=== PATIENT | female | born 1985 | race Caucasian/White ===

== ENCOUNTER 2018-03-28 16:54 | Emergency (ER) | payer SELFPAY ==
--- NOTE | 2018-03-28 17:54 | EDPHY ---
H & P Time Seen by Provider: 03/28/18 17:53 HPI/ROS: Chief complaint. Nausea and vomiting and diarrhea HPI. 33-year-old female vomiting and diarrhea since 1:00 p.m. This afternoon. She works at [employer] and apparently there is norovirus in the facility. Otherwise no bad food or recent travel. Cramping in her abdomen. No blood in emesis or stool. No focal areas of tenderness of her abdomen. No chest discomfort, trouble breathing, fever ROS 10 systems were reviewed and negative with the exception of the elements mentioned in the history of present illness Past Medical/Surgical History: Depression and anxiety Social History: , nonsmoker, no alcohol Smoking Status: Never smoked Physical Exam: General Appearance: Alert well-developed female mild distress vital signs are stable Eyes: Pupils equal and round no pallor or injection. ENT, Mouth: Mucous membranes are moist. Respiratory: There are no retractions, lungs are clear to auscultation. Cardiovascular: Regular rate and rhythm. Gastrointestinal: Abdomen is soft mild diffuse tenderness. No masses. Normal bowel sounds Neurological: Awake and alert, sensory and motor exams grossly normal. Skin: Warm and dry, no rashes. Musculoskeletal: Neck is supple nontender. Extremities symmetrical, full range of motion. Psychiatric: Patient is oriented X 3, there is no agitation. Constitutional: Initial Vital Signs Temperature (C) 36.5 C 03/28/18 16:58 Heart Rate 84 03/28/18 16:58 Respiratory Rate 18 03/28/18 16:58 Blood Pressure 140/85 H 03/28/18 16:58 O2 Sat (%) 100 03/28/18 16:58 O2 Delivery Mode Room Air O2 (L/minute) 2 Allergies/Adverse Reactions: No Known Allergies Allergy (Unverified 03/28/18 16:57) Home Medications: Medication Instructions Recorded None 02/12/09 Citalopram 03/28/18 Promethazine HCl [Phenergan 25mg 25 mg PO Q4-6PRN PRN #10 tab 03/28/18 (*)] Medical Decision Making Procedures: IV normal saline. Zofran for nausea and vomiting. Fentanyl 50 mcg IV to help with diarrhea ED Course/Re-evaluation: Re-evaluation 7:15 p.m.. Patient feeling much better. She has had 1 L of fluid but no urge to urinate. She will be given a 2nd L of normal saline. She is taking sips of oral fluids without vomiting Re-evaluation again at 8:30 p.m. Patient feels much better. She feels well to go home. Patient and I discussed treatment plan including criteria for return and importance of follow-up and further evaluation. She expresses understanding and agreement Differential Diagnosis: Likely this is norovirus. I believe this is likely viral syndrome. I considered acute abdomen as well. - Data Points Laboratory Results: Laboratory Results 03/28/18 18:00 03/28/18 18:00 03/28/18 03/28/18 03/28/18 18:00 18:00 18:00 WBC 20.48 10^3/uL H 10^3/uL (3.80-9.50) RBC 5.44 10^6/uL H 10^6/uL (4.18-5.33) Hgb 16.7 g/dL H g/dL (12.6-16.3) Hct 48.7 % H % (38.0-47.0) MCV 89.5 fL fL (81.5-99.8) MCH 30.7 pg pg (27.9-34.1) MCHC 34.3 g/dL g/dL (32.4-36.7) RDW 12.1 % % (11.5-15.2) Plt Count 264 10^3/uL 10^3/uL (150-400) MPV 11.6 fL fL (8.7-11.7) Neut % (Auto) 90.3 % H % (39.3-74.2) Lymph % (Auto) 4.3 % L % (15.0-45.0) [place]undy % (Auto) 4.2 % L % (4.5-13.0) Eos % (Auto) 0.1 % L % (0.6-7.6) Baso % (Auto) 0.4 % % (0.3-1.7) Nucleat RBC Rel Count 0.0 % % (0.0-0.2) Absolute Neuts (auto) 18.47 10^3/uL H 10^3/uL (1.70-6.50) Absolute Lymphs (auto) 0.89 10^3/uL L 10^3/uL (1.00-3.00) Absolute Monos (auto) 0.87 10^3/uL H 10^3/uL (0.30-0.80) Absolute Eos (auto) 0.02 10^3/uL L 10^3/uL (0.03-0.40) Absolute Basos (auto) 0.08 10^3/uL 10^3/uL (0.02-0.10) Absolute Nucleated RBC 0.00 10^3/uL 10^3/uL (0-0.01) Immature Gran % 0.7 % % (0.0-1.1) Immature Gran # 0.15 10^3/uL H 10^3/uL (0.00-0.10) Sodium 138 mEq/L mEq/L (135-145) Potassium 4.0 mEq/L mEq/L (3.5-5.2) Chloride 102 mEq/L mEq/L (97-110) Carbon Dioxide 22 mEq/l mEq/l (22-31) Anion Gap 14 mEq/L mEq/L (6-14) BUN 21 mg/dL mg/dL (7-23) Creatinine 0.8 mg/dL mg/dL (0.6-1.0) Estimated GFR > 60 Glucose 186 mg/dL H mg/dL (70-100) Calcium 10.4 mg/dL mg/dL (8.5-10.4) Beta HCG, Qual NEGATIVE Medications Given: Discontinued Medications Fentanyl (Sublimaze) 50 mcg IVP EDNOW ONE Stop: 03/28/18 17:59 Last Admin: 03/28/18 18:12 Dose: 50 mcg Sodium Chloride (Ns) 1,000 mls @ 0 mls/hr IV EDNOW ONE; Wide Open PRN Reason: Protocol Stop: 03/28/18 17:59 Last Admin: 03/28/18 18:11 Dose: 1,000 mls Sodium Chloride (Ns) 1,000 mls @ 0 mls/hr IV ONCE ONE; Wide Open PRN Reason: Protocol Stop: 03/28/18 19:16 Last Admin: 03/28/18 19:29 Dose: 1,000 mls Ondansetron HCl (Zofran) 4 mg IVP EDNOW ONE Stop: 03/28/18 17:59 Last Admin: 03/28/18 18:11 Dose: 4 mg Departure - Departure Disposition: Home, Routine, Self-Care Clinical Impression: Acute gastroenteritis Condition: Good Instructions: Gastroenteritis (ED) Additional Instructions: Frequent, small sips fluids. Gradual diet advancement. Phenergan 1 pill every 4-6 hours as needed for nausea vomiting Return for worsening symptoms. Re-evaluation 1-2 days if not improving Referrals: VANESSA VERDUGO [Other] - As per Instructions Vanessa Jensne DO [Medical Doctor] - 2-3 days, if not improved Prescriptions: Promethazine HCl [Phenergan 25mg (*)] 25 mg PO Q4-6PRN PRN #10 tab PRN Reason: Nausea/Vomiting, Use 1st
[2018-03-28] MEDS ORDERED: NS 1,000 ML IV ONE ×2 (17:58→19:15)
[2018-03-28] MEDS ORDERED: ONDANSETRON 4 MG/2 ML VIAL IVP ONE (17:58)
[2018-03-28] MEDS ORDERED: fentaNYL 100 MCG/2 ML INJ IVP ONE (17:58)
[2018-03-28 18:10] LABS: PLATELET COUNT 264 10^3/uL (150-400)
[2018-03-28 20:34] VITALS: BP 100/59
[2018-03-28] MEDS ORDERED: PROMETHAZINE 25 MG PREPACK #4 BTL TAKEHOME ONE (21:01)
== END 2018-03-28 21:11 | disposition home or self-care (01) ==
DX: K52.9 Noninfective gastroenteritis and colitis, unspecified (principal); E86.9 Volume depletion, unspecified
CPT/HCPCS: 96374; J2405; J3010

== ENCOUNTER 2018-05-18 08:09 | Emergency (ER) | payer OTHER ==
--- NOTE | 2018-05-18 08:17 | EDPHY ---
H & P Time Seen by Provider: 05/18/18 08:13 HPI/ROS: CHIEF COMPLAINT: Fall, left ankle pain HISTORY OF PRESENT ILLNESS: Patient is a 33-year-old female presents emergency department via EMS after falling injuring her left ankle. The patient states she slipped. She felt sudden pain in her left ankle. She was unable to ambulate. She denies striking her head. She did not lose consciousness. No nausea vomiting. No neck or back pain. No chest pain shortness of breath. Patient denies any numbness or tingling. REVIEW OF SYSTEMS: Negative Past medical history: Depression Social history: Patient does not smoke Smoking Status: Never smoked Physical Exam: Vitals noted GENERAL: Well-appearing, in no acute distress, alert. HEAD: No evidence of trauma. EYES: PERRLA, EOMI, normal to inspection. ENT: Normal external examination. NECK: The trachea is midline. There is no crepitus. The C-spine is nontender. NEXUS criteria is negative (no midline tenderness, no distracting injury, no altered mental status, no recent alcohol use, no focal neurologic deficit). RESPIRATORY: [Clear to auscultation bilaterally, no rales, rhonchi or wheezing. CVS: Regular rate and rhythm, no rubs, murmurs, or gallops. ABDOMEN: Soft, nontender. Pelvis: Stable. No tenderness palpation. BACK: Normal to inspection, no spinal tenderness. SKIN: Normal color, warm, dry. No pallor or diaphoresis. EXTREMITIES: Right upper extremity: Atraumatic. No visible signs of trauma. No tenderness palpation. Neurovascular intact distally. Left upper extremity: Atraumatic. No visible signs of trauma. No tenderness palpation. Neurovascular intact distally. Right lower extremity: Atraumatic. No visible signs of trauma. No tenderness palpation. Neurovascular intact distally. Left lower extremity: Patient has a deformity at her left ankle. There is tenderness to palpation over both the medial and lateral malleolus. There is no laceration or open wound. Patient is neurovascular intact distally. NEURO/PSYCH: Alert and oriented x 3, GCS 15, normal mood and affect, normal motor sensory exam. Constitutional: Initial Vital Signs Temperature (C) 37.1 C 05/18/18 08:09 Heart Rate 68 05/18/18 08:09 Respiratory Rate 16 05/18/18 08:09 Blood Pressure 161/107 H 05/18/18 08:09 O2 Sat (%) 98 05/18/18 08:09 O2 Delivery Mode Nasal Cannula O2 (L/minute) 3 Allergies/Adverse Reactions: No Known Allergies Allergy (Unverified 05/18/18 08:16) Home Medications: Medication Instructions Recorded Citalopram 03/28/18 Hydrocodone/APAP 5/325 [Clint 1 - 2 tab PO Q4 #13 tab 05/18/18 5/325 (RX)] Ondansetron Odt [Zofran Odt 4 mg 4 mg PO Q4PRN PRN #7 tab 05/18/18 (*)] Medical Decision Making - Diagnostics Imaging Results: Imaging Impressions Ankle X-Ray 05/18/18 08:13 Impression: 1. Unstable fracture dislocation involving the distal fibula and posterior lip of the tibia. 2. Wide ankle mortise and probable disruption of the syndesmosis. Tibia/Fibula X-Ray 05/18/18 08:13 Impression: 1. Intact proximal shaft of tibia and fibula. 2. Ankle fracture dislocation. Procedures: Procedure: Procedural sedation. Indication: Ankle dislocation. A pre-sedation evaluation was completed on the patient just prior to the procedure. Patient is an appropriate candidate for procedural sedation with ASA class E. The risks of the sedation were discussed including but not limited to dysrhythmia, need for airway intervention or general anesthesia, disability, ; and verbal consent obtained. A timeout was observed and patient's identity confirmed. The patient was sedated with propofol. The patient was monitored with continuous pulse oximetry, capnography, and athletic monitor. There were no complications and no significant hypoxemia. I remained at the bedside for the sedation. The total time I spent in the procedural sedation was 15 min. Procedure: Ortho Glass splint placement Ortho Glass posterior and sugar-tong splint was placed by me. The patient tolerated the procedure well. Post splint placement patient was neurovascular intact distally. Procedure: Closed reduction of ankle dislocation Indication: Ankle dislocation The patient consented to the procedure. See above. Propofol was used. Using manual pressure the ankle was reduced. Fluoroscopic imaging revealed improved alignment. Patient was neurovascularly intact post reduction Procedure: Fluoroscopic imaging of ankle reduction During ankle reduction, fluoroscopic evaluation was used to show improved alignment. ED Course/Re-evaluation: In the emergency department I met EMS on arrival. I took report from the crutching contractor. Patient was given fentanyl EN route. X-rays of her right ankle and right tib-fib were ordered. Ankle/tib-fib x-ray: Please refer the dictated report. Patient has fracture dislocation of the distal ankle I discussed the finding with the patient. I answered all her questions. She last ate last evening. I paged orthopedics. Patient consented to reduction of her ankle. I discussed the pros and cons. Patient was transferred to room 1. I discussed the case with Dr. Yi from Orthopedics. He recommended reduction and splint placement. He recommended CT imaging post reduction. He will follow up with the patient in his clinic later today. Patient was consciously sedated. She tolerated the procedure well. Post reduction films were ordered. Ankle x-ray: (post reduction) improved inline minute and relocation of the joint space. I discussed the findings with the patient. Patient is awaiting CT imaging. Patient was alert and oriented. She was doing well prior to discharge. She was given warnings prior to leaving. She will follow up with Dr. Yi Differential Diagnosis: My differential includes but is not limited to fracture, dislocation, contusion , sprain, strain, closed-head injury, back injury - Data Points Medications Given: Discontinued Medications Fentanyl (Sublimaze) 100 mcg IVP EDNOW ONE Stop: 05/18/18 08:24 Last Admin: 05/18/18 08:31 Dose: 100 mcg Propofol (Diprivan) 100 mg IVP EDNOW ONE Stop: 05/18/18 09:51 Last Admin: 05/18/18 09:32 Dose: 100 mg Departure - Departure Disposition: Home, Routine, Self-Care Clinical Impression: Ankle fracture Qualifiers: Encounter type: initial encounter Fracture type: closed Laterality: right Qualified Code(s): S82.891A - Other fracture of right lower leg, initial encounter for closed fracture Condition: Good Instructions: Ankle Fracture (ED) Additional Instructions: You are to go see Dr. Yi today in his office. Use your crutches and do not put weight on your ankle. Referrals: Samuel Yi MD [Medical Doctor] - 05/18/18 Prescriptions: Hydrocodone/APAP 5/325 [Clint 5/325 (RX)] 1 - 2 tab PO Q4 #13 tab Ondansetron Odt [Zofran Odt 4 mg (*)] 4 mg PO Q4PRN PRN #7 tab PRN Reason: For Nausea & Vomiting
[2018-05-18] MEDS ORDERED: fentaNYL 100 MCG/2 ML INJ IVP ONE ×2 (08:23→10:18)
[2018-05-18] MEDS ORDERED: PROPOFOL 200 MG/20 ML VIAL ONE ×2 (09:17→09:30)
[2018-05-18] MEDS ORDERED: fentaNYL 100 MCG/2 ML INJ ONE (09:18)
[2018-05-18] MEDS ORDERED: PROPOFOL 200 MG/20 ML VIAL IVP ONE (09:50)
[2018-05-18 10:38] VITALS: BP 147/90
== END 2018-05-18 11:13 | disposition home or self-care (01) ==
LOC: EDUNIT#
PROC: 0SSFXZZ Reposition Right Ankle Joint, External Approach (ICD-10-PCS; principal; 2018-05-18)
DX: S82.891A Other fracture of right lower leg, initial encounter for closed fracture (principal); W00.0XXA Fall on same level due to ice and snow, initial encounter; Y93.01 Activity, walking, marching and hiking; Y92.481 Parking lot as the place of occurrence of the external cause
CPT/HCPCS: 96374; J2704; J3010